=== PATIENT | female | born 1955 | race Caucasian/White ===

== ENCOUNTER 2021-01-16 14:18 | Outpatient (CLI) | payer MEDICARE, BC | END 2021-01-16 14:19 | disposition home or self-care (01) | LOC: BICRAD 14:18 | PROVIDERS: ATTEND Internal Medicine Rheumatology | DX: M81.0 Age-related osteoporosis without current pathological fracture (principal); M40.204 Unspecified kyphosis, thoracic region | CPT/HCPCS: 72072 ==

== ENCOUNTER 2025-02-21 07:47 | Outpatient (CLI) | payer MEDICARE | END 2025-02-21 07:48 | disposition home or self-care (01) | LOC: SCSULT 07:47 | PROVIDERS: ATTEND Physician Assistant Medical | DX: R93.2 Abnormal findings on diagnostic imaging of liver and biliary tract (principal) | CPT/HCPCS: 76705 ==